=== PATIENT | male | born 1960 | race Caucasian/White ===

== ENCOUNTER 2016-06-18 12:30 | Emergency (ER) | payer OTHER ==
[~2016-06-18 12:30] MED LIST: ALPR1TAB3 PO; BACITAB3 PO; CIPR500T89 PO; FOLI1TAB2 PO; HYDR-3713 PO; OXAZ30CA2 PO; PERCOCET PO; PRIL40CA PO; SUCR1SS PO; THIA100TA PO; VITMTA PO
[2016-06-18 12:56] LABS: BASO % 0.4 % (0.0-1.0); EOS % 0.4 % (0.0-3.0); LARGE UNSTAINED CELL # 0.2 K/mm3 (0.0-0.4); LARGE UNSTAINED CELL % 2.4 % (0.0-4.0); LYMPH # 1.6 K/mm3 (1.5-4.5); LYMPH % 19.5 % (24.0-44.0); MEAN CORPUSCULAR HEMOGLOBIN 34.2 pg (27.0-33.0); MEAN CORPUSCULAR HGB CONC 33.6 g/dl (32.0-36.5); MEAN CORPUSCULAR VOLUME 101.9 fl (80.0-96.0); MONO # 0.5 K/mm3 (0.0-0.8); MONO % 6.5 % (0.0-5.0); NEUTROPHILS # 5.9 K/mm3 (1.8-7.7); NEUTROPHILS % 70.8 % (36.0-66.0); PLATELET COUNT, AUTOMATED 459 k/mm3 (150-450); RED CELL DISTRIBUTION WIDTH 12.2 % (11.5-14.5); WHITE BLOOD COUNT 8.3 K/mm3 (4.0-10.0)
[2016-06-18 13:00] LABS: INR 1.03
--- NOTE | 2016-06-18 13:03 | ECGEPIP ---
Stationary ECG Study [facility] - ED Test Date: 2016-06-18 Pat Name: DIONY CALLAHAN Department: Room: - Gender: M Lead Qa Analyst: : 1960 Requested By: Zahra Perez Order Number: [id number] Reading MD: Ajay Zhang Measurements Intervals [place] Rate: 62 P: -1 MT: 166 QRS: 23 QRSD: 105 T: 43 QT: 418 QTc: 426 Interpretive Statements SINUS RHYTHM Electronically Signed On 06-18-2016 13:03:55 EST by Ajay Zhang
[2016-06-18 13:22] LABS: ALBUMIN 3.9 GM/DL (3.2-5.2); ALBUMIN/GLOBULIN RATIO 1.18 (1.00-1.93); ALKALINE PHOSPHATASE 72 U/L (45-117); ALT/SGPT 24 U/L (12-78); AMYLASE 49 U/L (25-115); ANION GAP 11 MEQ/L (8-16); AST/SGOT 20 U/L (15-37); BILIRUBIN,DIRECT 0.1 MG/DL (0.0-0.2); BILIRUBIN,TOTAL 0.4 MG/DL (0.2-1.0); BLOOD UREA NITROGEN 15 MG/DL (7-18); CALCIUM LEVEL 9.1 MG/DL (8.5-10.1); CARBON DIOXIDE LEVEL 24 MEQ/L (21-32); CHLORIDE LEVEL 103 MEQ/L (98-107); CREATININE FOR GFR 1.66 MG/DL (0.70-1.30); GLOMERULAR FILTRATION RATE 45.7 (>56); GLUCOSE, FASTING 139 MG/DL (70-105); POTASSIUM SERUM 4.6 MEQ/L (3.5-5.1); SODIUM LEVEL 138 MEQ/L (136-145); TOTAL PROTEIN 7.2 GM/DL (6.4-8.2)
--- NOTE | 2016-06-18 15:20 | EDDOCDS ---
Nurse's Notes [facility] Name: Diony Hoffman Age: 55 yrs Sex: Male : 1960 Arrival Date: 06/18/2016 Time: 12:30 Bed 1 Private MD: Jaison Jeffers M. Diagnosis: Hypotension Presentation: 06/18 12:32 Presenting complaint: Patient states: became light headed and dizzy while at store and pml felt as if he needed to sit down. denies LOC. EMS reports pt was minimally responsive to voice commands and reported some fine tremors. states pt was d/c'ed from [facility] yesterday. found pt diaphoretic and pale with bp 60/p. Adult Sepsis Screening: The patient does not have new or worsening altered mentation. Patient's respiratory rate is less than 22. Systolic blood pressure is less than or equal to 100 (1 point). Patient has a qSOFA score of 1- Negative Sepsis Screen. Suicide/Homicide risk assessment- the patient denies having any suicidal and/or homicidal ideations and does not present with any other emotional, behavioral or mental health complaints. Status: Patient is not a legal service specialist or dependent. Transition of care: patient was not received from another setting of care. 12:32 Acuity: MYAH Level 3 pml 12:32 Method Of Arrival: Ambulance pml Triage Assessment: 12:36 General: Appears in no apparent distress, comfortable, Behavior is appropriate for age, pml cooperative. Pain: Location: anterior aspect of right shoulder Pain currently is 8 out of 10 on a pain scale. HIV screening NA for this visit Offered previously. The patient is triaged at the bedside. See Assessment in Nurses Notes section of ED record. Neurological: Level of Consciousness is awake, alert, Oriented to person, place, time. Cardiovascular: Capillary refill < 3 seconds Rhythm is sinus rhythm No ectopy. Respiratory: Airway is patent Respiratory effort is even, unlabored, Respiratory pattern is regular, symmetrical. GI: Abdomen is non- distended. Derm: Skin is pale. Historical: - Allergies: no known allergies; - Home Meds: 1. benazepril 40 mg oral tab 1 tab once daily 2. naltrexone 50 mg oral tab 1 tab once daily 3. trazodone 50 mg Oral tab nightly - PMHx: Alcoholism; Anxiety; Chronic Low Back Pain; herniated lumbar discs; Hypertension; - PSHx: Vasectomy; ORIF Left Ankle; ORIF Right Ankle; Rotator Cuff Repair- Right; - Social history: Smoking status: Patient states former smoker of tobacco. No barriers to communication noted, The patient speaks fluent Amharic, Speaks appropriately for age. - Family history: Not pertinent. - : The pt / caregiver states he / she is not on anticoagulants. Home medication list is obtained from the patient. - Exposure Risk Screening:: None identified. Screenin:40 Screening information is obtained from the patient. Fall risk: No risks identified. pml Assistance ADL's: requires no assistance with activities of daily living. Abuse/DV Screen: The patient / caregiver reports he/she is: not in a situation that causes fear, pain or injury. Nutritional screening: No deficits noted. Advance Directives: Currently, there is no health care proxy. home support is adequate. Assessment: 12:40 General: see triage note. pml 14:08 General: Appears in no apparent distress, comfortable, Behavior is appropriate for age, pml cooperative. Pain: Denies pain. Neurological: Level of Consciousness is awake, alert, Oriented to person, place, time. Cardiovascular: Capillary refill < 3 seconds Rhythm is sinus rhythm No ectopy. Respiratory: Airway is patent Respiratory effort is even, unlabored. Derm: Skin is pink, warm & dry. 14:17 General: Reports Pt refused Chest X-ray. Dr. Perez made aware. jc4 15:00 General: pt reports he feels better and would like to go home. MD Naqvi reviewed AMA pml risks and benefits and pt acknowledged, AMA form signed . 15:16 General: Appears in no apparent distress, Behavior is appropriate for age, cooperative. pml Pain: Denies pain. Neurological: Level of Consciousness is awake, alert, Oriented to person, place, time. Cardiovascular: Capillary refill < 3 seconds Rhythm is sinus rhythm No ectopy. Respiratory: Airway is patent Respiratory effort is even, unlabored. Derm: Skin is pink, warm & dry. Vital Signs: 12:38 BP 87 / 55; Pulse 75; Resp 20; Temp 97.8(O); Pulse Ox 97% on R/A; Weight 94.48 kg (M); ls3 Pain 8/10; 12:42 BP 85 / 53 (auto/); pml 12:42 Pulse 71 MON; Pulse Ox 97% ; pml 12:45 BP 81 / 50 (auto/); pml 12:46 Pulse 66 MON; Pulse Ox 96% ; pml 12:51 BP 86 / 55 (auto/); pml 12:52 Pulse 63 MON; Pulse Ox 99% ; pml 13:01 BP 87 / 55 (auto/); pml 13:02 Pulse 69 MON; Pulse Ox 99% ; pml 13:11 BP 91 / 54 (auto/); pml 13:12 Pulse 66 MON; Pulse Ox 96% ; pml 13:21 BP 97 / 51 (auto/); pml 13:22 Pulse 68 MON; Pulse Ox 89% ; pml 13:30 Pulse 68 MON; Pulse Ox 97% ; pml 13:30 BP 90 / 50 (auto/); pml 13:40 Pulse 65 MON; Pulse Ox 97% ; pml 13:40 BP 90 / 55 (auto/); pml 13:51 BP 91 / 52 (auto/); pml 13:52 Pulse 62 MON; Pulse Ox 97% ; pml 14:01 BP 92 / 52 (auto/); pml 14:02 Pulse 64 MON; Pulse Ox 96% ; pml 14:11 Pulse 65 MON; Pulse Ox 97% ; pml 14:11 BP 108 / 67 (auto/); pml 14:21 BP 112 / 65 (auto/); pml 14:21 Pulse 64 MON; Pulse Ox 98% ; pml 14:29 Pulse 67 MON; Pulse Ox 93% ; pml 14:30 BP 123 / 71 (auto/); pml 14:39 Pulse 65 MON; Pulse Ox 97% ; pml 14:40 BP 111 / 73 (auto/); pml 14:51 BP 115 / 72 (auto/); pml 14:51 Pulse 68 MON; Pulse Ox 97% ; pml 15:01 BP 126 / 74 (auto/); pml 15:01 Pulse 69 MON; Pulse Ox 96% ; pml 15:08 Pulse 67 MON; Pulse Ox 94% ; pml 15:08 BP 128 / 73 (auto/); pml 15:18 BP 128 / 73; Pulse 67; Resp 18; Temp 97.3; Pulse Ox 92% on R/A; Pain 0/10; pml Vitals: 12:36 Log In Time N/A - ambulance arrival. pml ED Course: 12:31 Patient visited by Maite Wang, Superintendent Commissary. lbd 12:31 Patient moved to Waiting lbd 12:32 Jaison Jeffers is Private Physician. lbd 12:32 Neisha Duarnt,RN is Primary Nurse. lbd 12:32 Patient moved to 1 lbd 12:33 Triage Initiated pml 12:34 Zahra Perez MD is Attending Physician. sd1 12:37 Patient visited by Zahra Perez MD. sd1 12:37 Patient visited by Neisha Durant,JACINTA. pml 12:39 Patient visited by Manasa Bender PCA. ls3 12:40 The patient / caregiver is instructed regarding the plan of care and ED course. Patient pml has correct armband on for positive identification. Placed in gown. Bed in low position. Call light in reach. Side rails up X2. Seizure precautions initiated. equipment monitor phototypesetting on. Pulse ox on. NIBP on. 12:40 Inserted peripheral IV: 18gauge IV in left antecubital area and blood collected. pml Patient tolerated the procedure well. by JACINTA Baumann. 12:41 Patient visited by Neisha Durant RN. pml 12:55 EKG done. (by ED staff). Reviewed by Zahra Perez MD. ls3 13:43 EKG-ADULT Returned. EDMS 13:59 Patient visited by Leonor Morrow PCA. jlf 14:09 Patient visited by Neisha Durant RN. pml 14:33 Jaison Jeffers is Referral Physician. sd1 14:59 [facility] Payment Agreement was scanned into [employer] and attached to record. mm15 15:18 Discontinued lock intact, bleeding controlled, pressure dressing applied, No pml redness/swelling at site. No procedures done that require assistance. Administered Medications: 12:47 Drug: NS 0.9% 1000 ml [sodium chloride 0.9 % injection solution] Route: IV; Rate: pml bolus; Site: left antecubital; 14:01 Follow up: IV Status: Completed infusion; IV Intake: 1000ml pml Intake: 14:01 IV: 1000.00ml; Total: 1000.00ml. pml Order Results: Lab Order: Amylase; SPEC'M 06/18/16 12:38 Test: AMYLASE; Value: 49; Range: 25-115; Units: U/L; Status: F Lab Order: Basic Metabolic Profile; SPEC'M 06/18/16 12:38 Test: GLUCOSE, FASTING; Value: 139; Range: 70-105; Abnormal: Above high normal; Units: MG/DL; Status: F Test: BLOOD UREA NITROGEN; Value: 15; Range: 7-18; Units: MG/DL; Status: F Test: CREATININE FOR GFR; Value: 1.66; Range: 0.70-1.30; Abnormal: Above high normal; Units: MG/DL; Status: F Test: GLOMERULAR FILTRATION RATE; Value: 45.7; Range: >56; Abnormal: Below low normal; Status: F Test: SODIUM LEVEL; Value: 138; Range: 136-145; Units: MEQ/L; Status: F Test: POTASSIUM SERUM; Value: 4.6; Range: 3.5-5.1; Units: MEQ/L; Status: F Test: CHLORIDE LEVEL; Value: 103; Range: 98-107; Units: MEQ/L; Status: F Test: CARBON DIOXIDE LEVEL; Value: 24; Range: 21-32; Units: MEQ/L; Status: F Test: ANION GAP; Value: 11; Range: 8-16; Units: MEQ/L; Status: F Test: CALCIUM LEVEL; Value: 9.1; Range: 8.5-10.1; Units: MG/DL; Status: F Test Note: ; Units are mL/min/1.73 m2 Chronic Kidney Disease Staging per NKF: Stage I & II GFR >=60 Normal to Mildly Decreased Stage III GFR 30-59 Moderately Decreased Stage IV GFR 15-29 Severely Decreased Stage V GFR <15 Very Little GFR Left ESRD GFR <15 on PLUSH BRUSHER Lab Order: CBC with Diff; SPEC'M 06/18/16 12:38 Test: WHITE BLOOD COUNT; Value: 8.3; Range: 4.0-10.0; Units: K/mm3; Status: F Test: RED BLOOD COUNT; Value: 4.32; Range: 4.30-6.10; Units: M/mm3; Status: F Test: HEMOGLOBIN; Value: 14.8; Range: 14.0-18.0; Units: g/dl; Status: F Test: HEMATOCRIT; Value: 44.1; Range: 42.0-52.0; Units: %; Status: F Test: MEAN CORPUSCULAR VOLUME; Value: 101.9; Range: 80.0-96.0; Abnormal: Above high normal; Units: fl; Status: F Test: MEAN CORPUSCULAR HEMOGLOBIN; Value: 34.2; Range: 27.0-33.0; Abnormal: Above high normal; Units: pg; Status: F Test: MEAN CORPUSCULAR HGB CONC; Value: 33.6; Range: 32.0-36.5; Units: g/dl; Status: F Test: RED CELL DISTRIBUTION WIDTH; Value: 12.2; Range: 11.5-14.5; Units: %; Status: F Test: PLATELET COUNT, AUTOMATED; Value: 459; Range: 150-450; Abnormal: Above high normal; Units: k/mm3; Status: F Test: NEUTROPHILS %; Value: 70.8; Range: 36.0-66.0; Abnormal: Above high normal; Units: %; Status: F Test: LYMPH %; Value: 19.5; Range: 24.0-44.0; Abnormal: Below low normal; Units: %; Status: F Test: MONO %; Value: 6.5; Range: 0.0-5.0; Abnormal: Above high normal; Units: %; Status: F Test: EOS %; Value: 0.4; Range: 0.0-3.0; Units: %; Status: F Test: BASO %; Value: 0.4; Range: 0.0-1.0; Units: %; Status: F Test: LARGE UNSTAINED CELL %; Value: 2.4; Range: 0.0-4.0; Units: %; Status: F Test: NEUTROPHILS #; Value: 5.9; Range: 1.8-7.7; Units: K/mm3; Status: F Test: LYMPH #; Value: 1.6; Range: 1.5-4.5; Units: K/mm3; Status: F Test: MONO #; Value: 0.5; Range: 0.0-0.8; Units: K/mm3; Status: F Test: EOS #; Value: 0.0; Range: 0.0-0.50; Units: K/mm3; Status: F Test: BASO #; Value: 0.0; Range: 0.0-0.2; Units: K/mm3; Status: F Test: LARGE UNSTAINED CELL #; Value: 0.2; Range: 0.0-0.4; Units: K/mm3; Status: F Lab Order: Cardiac Injury Profile; [facility] 06/18/16 12:38 Test: CPK CREATINE PHOSPHOKINASE; Value: 219; Range: 39-308; Units: U/L; Status: F Test: CK-MB VALUE MASS; Value: 1.8; Range: 0.0-3.6; Units: NG/ML; Status: F Test: MB/CK RELATIVE INDEX; Value: 0.82; Range: < OR =4; Status: F Test Note: ; DIAGNOSIS CRITERIA MMB ng/ml Relative Index (RI) NON-AMI < or = 5 N/A JOLLY ZONE > 5 < or = 4 AMI > 5 > 4 Lab Order: Lipase; [facility] 06/18/16 12:38 Test: LIPASE; Value: 395; Range: 73-393; Abnormal: Above high normal; Units: U/L; Status: F Lab Order: Liver Profile; [facility] 06/18/16 12:38 Test: AST/SGOT; Value: 20; Range: 15-37; Units: U/L; Status: F Test: ALT/SGPT; Value: 24; Range: 12-78; Units: U/L; Status: F Test: ALKALINE PHOSPHATASE; Value: 72; Range: 45-117; Units: U/L; Status: F Test: BILIRUBIN,TOTAL; Value: 0.4; Range: 0.2-1.0; Units: MG/DL; Status: F Test: BILIRUBIN,DIRECT; Value: 0.1; Range: 0.0-0.2; Units: MG/DL; Status: F Test: TOTAL PROTEIN; Value: 7.2; Range: 6.4-8.2; Units: GM/DL; Status: F Test: ALBUMIN; Value: 3.9; Range: 3.2-5.2; Units: GM/DL; Status: F Test: ALBUMIN/GLOBULIN RATIO; Value: 1.18; Range: 1.00-1.93; Status: F Lab Order: Prothrombin Time Profile\E\INR; [facility] 06/18/16 12:38 Test: PROTHROMBIN TIME; Value: 13.6; Range: 12.3-14.5; Units: SECONDS; Status: F Test: INR; Value: 1.03; Status: F Test Note: ; THERAPUTIC HUMAN INR VALUES INDICATIONS NORMAL RANGES PROPHYLAXIS/TREATMENT OF: VENOUS THROMBOSIS 2.0-3.0 PULMONARY EMBOLISM 2.0-3.0 PREVENTION OF SYSTEMIC EMBOLISM FROM: TISSUE HEART VALVES 2.0-3.0 ACUTE MYOCARDIAL INFARCTION 2.0-3.0 VALVULAR HEART DISEASE 2.0-3.0 ATRIAL FIBRILLATION 2.0-3.0 MECHANICAL VALVES(HIGH RISK) 2.5-3.5 RECURRENT MYOCARDIAL INFARCTION 2.5-3.5 Lab Order: Troponin; SPEC'M 06/18/16 12:38 Test: TROPONIN I; Value: < 0.02; Range: < 0.10; Units: NG/ML; Status: F Test Note: ; Troponin I Reference Interval for [employer] LOCI: 99th Percentile= 0.00-0.045 ng/ml Risk Stratification: <= 0.10 ng/ml Decreased Risk for Adverse Clinical Events. 0.10-1.50 ng/ml Increased Risk for Adverse Clinical Events. Evaluation of additional criterion and/or repeat testing in 2-6 hours is suggested to rule out myocardial damage. >= 1.50 ng/ml Indicative of Myocardial Injury. 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 sd1 15:18 Discharge Assessment: Patient awake, alert and oriented x 3. No cognitive and/or pml functional deficits noted. Patient verbalized understanding of disposition instructions. patient administered narcotics - no. The following High Risk Discharge criteria are identified: None. Discharged to home ambulatory, The patient is leaving AMA: AMA form signed, Notification of AMA status is made to the charge nurse, the health care social worker, the ED attending physician. Condition: good Condition: stable. Discharge instructions given to patient, Instructed on discharge instructions, follow up and referral plans. Demonstrated understanding of instructions, Pt was receptive of discharge instructions/ teaching. No special radiology studies were completed. Property sent home with patient. 15:19 Patient left the ED. pml Signatures: Dispatcher [employer] EDMS Zahra Perez MD MD sd1 Maite Wang, Superintendent Commissary Unit lbd Jenn Burrell RN RN jc4 Neisha Durant,JACINTA RN pml Vita Knox mm15 Leonor Morrow, GRINDER HAND GRINDER HAND dannyf Manasa Bender, GRINDER HAND GRINDER HAND ls3 KIM
--- NOTE | 2016-06-18 15:20 | EDDOCDS ---
Physician Documentation [facility] Name: Jorge Hoffman Age: 55 yrs Sex: Male : 1960 Arrival Date: 06/18/2016 Time: 12:30 Bed 1 Private MD: Jaison Jeffers M. Disposition: 06/18/16 14:33 Patient has left against medical advice. Impression: Hypotension. - Patients states they are going to Home/Self Care. - Condition is Fair. - Discharge Instructions: Hypotension, Hypotension, [id number]. Medication Reconciliation, Local Pharmacy Hours form. Follow up: Jaison Jeffers; When: Tomorrow. - Problem is new. - Symptoms have improved. Historical: - Allergies: no known allergies; - Home Meds: 1. benazepril 40 mg oral tab 1 tab once daily 2. naltrexone 50 mg oral tab 1 tab once daily 3. trazodone 50 mg Oral tab nightly - PMHx: Alcoholism; Anxiety; Chronic Low Back Pain; herniated lumbar discs; Hypertension; - PSHx: Vasectomy; ORIF Left Ankle; ORIF Right Ankle; Rotator Cuff Repair- Right; - Social history: Smoking status: Patient states former smoker of tobacco. No barriers to communication noted, The patient speaks fluent Romansh, Speaks appropriately for age. - Family history: Not pertinent. - : The pt / caregiver states he / she is not on anticoagulants. Home medication list is obtained from the patient. - Exposure Risk Screening:: None identified. Vital Signs: 06/18 12:38 BP 87 / 55; Pulse 75; Resp 20; Temp 97.8(O); Pulse Ox 97% on R/A; Weight 94.48 kg / ls3 208.29 lbs (M); Pain 8/10; 12:42 BP 85 / 53 (auto/); pml 12:42 Pulse 71 MON; Pulse Ox 97% ; pml 12:45 BP 81 / 50 (auto/); pml 12:46 Pulse 66 MON; Pulse Ox 96% ; pml 12:51 BP 86 / 55 (auto/); pml 12:52 Pulse 63 MON; Pulse Ox 99% ; pml 13:01 BP 87 / 55 (auto/); pml 13:02 Pulse 69 MON; Pulse Ox 99% ; pml 13:11 BP 91 / 54 (auto/); pml 13:12 Pulse 66 MON; Pulse Ox 96% ; pml 13:21 BP 97 / 51 (auto/); pml 13:22 Pulse 68 MON; Pulse Ox 89% ; pml 13:30 Pulse 68 MON; Pulse Ox 97% ; pml 13:30 BP 90 / 50 (auto/); pml 13:40 Pulse 65 MON; Pulse Ox 97% ; pml 13:40 BP 90 / 55 (auto/); pml 13:51 BP 91 / 52 (auto/); pml 13:52 Pulse 62 MON; Pulse Ox 97% ; pml 14:01 BP 92 / 52 (auto/); pml 14:02 Pulse 64 MON; Pulse Ox 96% ; pml 14:11 Pulse 65 MON; Pulse Ox 97% ; pml 14:11 BP 108 / 67 (auto/); pml 14:21 BP 112 / 65 (auto/); pml 14:21 Pulse 64 MON; Pulse Ox 98% ; pml 14:29 Pulse 67 MON; Pulse Ox 93% ; pml 14:30 BP 123 / 71 (auto/); pml 14:39 Pulse 65 MON; Pulse Ox 97% ; pml 14:40 BP 111 / 73 (auto/); pml 14:51 BP 115 / 72 (auto/); pml 14:51 Pulse 68 MON; Pulse Ox 97% ; pml 15:01 BP 126 / 74 (auto/); pml 15:01 Pulse 69 MON; Pulse Ox 96% ; pml 15:08 Pulse 67 MON; Pulse Ox 94% ; pml 15:08 BP 128 / 73 (auto/); pml 15:18 BP 128 / 73; Pulse 67; Resp 18; Temp 97.3; Pulse Ox 92% on R/A; Pain 0/10; pml MDM: 12:46 NS 0.9% 1000 ml IV at bolus once ordered. sd1 12:46 IV Saline Lock ordered. sd1 12:47 Business Services Sales Agent/Pulse Ox/q 30 min VS ordered. sd1 12:47 Amylase Ordered. EDMS 12:47 Basic Metabolic Profile Ordered. EDMS 12:47 CBC with Diff Ordered. EDMS 12:47 Cardiac Injury Profile Ordered. EDMS 12:47 Lipase Ordered. EDMS 12:47 Liver Profile Ordered. EDMS 12:47 Prothrombin Time Profile\E\INR Ordered. EDMS 12:47 Troponin Ordered. EDMS 12:48 ECG WITH READING ER PHYS+CARDIAG ordered. EDMS 12:52 Financial registration complete. mm15 13:19 CBC with Diff Reviewed. sd1 13:19 Prothrombin Time Profile\E\INR Reviewed. sd1 13:24 Basic Metabolic Profile Reviewed. sd1 13:24 Lipase Reviewed. sd1 13:24 Amylase Reviewed. sd1 13:24 Cardiac Injury Profile Reviewed. sd1 13:24 Liver Profile Reviewed. sd1 13:24 Troponin Reviewed. sd1 13:25 Lactic Acid (Jolly tube on ice) Ordered. EDMS 13:25 Urine Toxicology Ordered. EDMS 13:55 Lactic Acid (Jolly tube on ice) Reviewed. sd1 13:55 EKG-ADULT Reviewed. sd1 13:56 -Blood Culture (Adults Only), peripheral from different site, or from device/port/PICC sd1 etc. if present ordered. 13:57 Urine Culture Ordered. EDMS 13:58 -Blood Culture Ordered. EDMS 13:58 Urinalysis Ordered. EDMS 14:10 -Blood Culture (Adults Only), peripheral from different site, or from device/port/PICC lbd etc. if present complete. 14:15 BLOOD CULTURES Ordered. EDMS 14:59 [facility] Payment Agreement was scanned into [employer] and attached to record. mm15 Administered Medications: 12:47 Drug: NS 0.9% 1000 ml [sodium chloride 0.9 % injection solution] Route: IV; Rate: pml bolus; Site: left antecubital; 14:01 Follow up: IV Status: Completed infusion; IV Intake: 1000ml pml Signatures: Dispatcher [employer] EDNE Zahra Perez MD MD sd1 Maite Wang, Director Of Operations Home Health Unit lbd Neisha Durant RN RN pml Vita Knox mm15 The chart was reviewed and I authenticate all verbal orders and agree with the evaluation and treatment provided.Corrections: (The following items were deleted from the chart) 14:19 13:57 Chest, 1 view+XR ordered. EDMS EDMS Attachments: 14:59 [facility] [place] Payment Agreement mm15 MTDD
--- NOTE | 2016-06-20 16:20 | EDDOCDS ---
Physician Documentation [facility] Name: Jorge Hoffman Age: 55 yrs Sex: Male : 1960 Arrival Date: 06/18/2016 Time: 12:30 Bed 1 Private MD: Jaison Jeffers M. Disposition: 06/18/16 14:33 Patient has left against medical advice. Impression: Hypotension. - Patients states they are going to Home/Self Care. - Condition is Fair. - Discharge Instructions: Hypotension, Hypotension, [id number]. Medication Reconciliation, Local Pharmacy Hours form. Follow up: Jaison Jeffers; When: Tomorrow. - Problem is new. - Symptoms have improved. Historical: - Allergies: no known allergies; - Home Meds: 1. benazepril 40 mg oral tab 1 tab once daily 2. naltrexone 50 mg oral tab 1 tab once daily 3. trazodone 50 mg Oral tab nightly - PMHx: Alcoholism; Anxiety; Chronic Low Back Pain; herniated lumbar discs; Hypertension; - PSHx: Vasectomy; ORIF Left Ankle; ORIF Right Ankle; Rotator Cuff Repair- Right; - Social history: Smoking status: Patient states former smoker of tobacco. No barriers to communication noted, The patient speaks fluent Nauruan, Speaks appropriately for age. - Family history: Not pertinent. - : The pt / caregiver states he / she is not on anticoagulants. Home medication list is obtained from the patient. - Exposure Risk Screening:: None identified. Vital Signs: 06/18 12:38 BP 87 / 55; Pulse 75; Resp 20; Temp 97.8(O); Pulse Ox 97% on R/A; Weight 94.48 kg / ls3 208.29 lbs (M); Pain 8/10; 12:42 BP 85 / 53 (auto/); pml 12:42 Pulse 71 MON; Pulse Ox 97% ; pml 12:45 BP 81 / 50 (auto/); pml 12:46 Pulse 66 MON; Pulse Ox 96% ; pml 12:51 BP 86 / 55 (auto/); pml 12:52 Pulse 63 MON; Pulse Ox 99% ; pml 13:01 BP 87 / 55 (auto/); pml 13:02 Pulse 69 MON; Pulse Ox 99% ; pml 13:11 BP 91 / 54 (auto/); pml 13:12 Pulse 66 MON; Pulse Ox 96% ; pml 13:21 BP 97 / 51 (auto/); pml 13:22 Pulse 68 MON; Pulse Ox 89% ; pml 13:30 Pulse 68 MON; Pulse Ox 97% ; pml 13:30 BP 90 / 50 (auto/); pml 13:40 Pulse 65 MON; Pulse Ox 97% ; pml 13:40 BP 90 / 55 (auto/); pml 13:51 BP 91 / 52 (auto/); pml 13:52 Pulse 62 MON; Pulse Ox 97% ; pml 14:01 BP 92 / 52 (auto/); pml 14:02 Pulse 64 MON; Pulse Ox 96% ; pml 14:11 Pulse 65 MON; Pulse Ox 97% ; pml 14:11 BP 108 / 67 (auto/); pml 14:21 BP 112 / 65 (auto/); pml 14:21 Pulse 64 MON; Pulse Ox 98% ; pml 14:29 Pulse 67 MON; Pulse Ox 93% ; pml 14:30 BP 123 / 71 (auto/); pml 14:39 Pulse 65 MON; Pulse Ox 97% ; pml 14:40 BP 111 / 73 (auto/); pml 14:51 BP 115 / 72 (auto/); pml 14:51 Pulse 68 MON; Pulse Ox 97% ; pml 15:01 BP 126 / 74 (auto/); pml 15:01 Pulse 69 MON; Pulse Ox 96% ; pml 15:08 Pulse 67 MON; Pulse Ox 94% ; pml 15:08 BP 128 / 73 (auto/); pml 15:18 BP 128 / 73; Pulse 67; Resp 18; Temp 97.3; Pulse Ox 92% on R/A; Pain 0/10; pml MDM: 12:46 NS 0.9% 1000 ml IV at bolus once ordered. sd1 12:46 IV Saline Lock ordered. sd1 12:47 Meat Pumper/Pulse Ox/q 30 min VS ordered. sd1 12:47 Amylase Ordered. EDMS 12:47 Basic Metabolic Profile Ordered. EDMS 12:47 CBC with Diff Ordered. EDMS 12:47 Cardiac Injury Profile Ordered. EDMS 12:47 Lipase Ordered. EDMS 12:47 Liver Profile Ordered. EDMS 12:47 Prothrombin Time Profile\E\INR Ordered. EDMS 12:47 Troponin Ordered. EDMS 12:48 ECG WITH READING ER PHYS+CARDIAG ordered. EDMS 12:52 Financial registration complete. mm15 13:19 CBC with Diff Reviewed. sd1 13:19 Prothrombin Time Profile\E\INR Reviewed. sd1 13:24 Basic Metabolic Profile Reviewed. sd1 13:24 Lipase Reviewed. sd1 13:24 Amylase Reviewed. sd1 13:24 Cardiac Injury Profile Reviewed. sd1 13:24 Liver Profile Reviewed. sd1 13:24 Troponin Reviewed. sd1 13:25 Lactic Acid (Jolly tube on ice) Ordered. EDMS 13:25 Urine Toxicology Ordered. EDMS 13:55 Lactic Acid (Jolly tube on ice) Reviewed. sd1 13:55 EKG-ADULT Reviewed. sd1 13:56 -Blood Culture (Adults Only), peripheral from different site, or from device/port/PICC sd1 etc. if present ordered. 13:57 Urine Culture Ordered. EDMS 13:58 -Blood Culture Ordered. EDMS 13:58 Urinalysis Ordered. EDMS 14:10 -Blood Culture (Adults Only), peripheral from different site, or from device/port/PICC lbd etc. if present complete. 14:15 BLOOD CULTURES Ordered. EDMS 14:59 [facility] Payment Agreement was scanned into [email or web address] and attached to record. mm15 15:22 URINALYSIS Ordered. EDUT 06/19 08:47 T-Sheet-- Draft Copy was scanned into [email or web address] and attached to record. [facility] 08:47 ECG/EKG was scanned into [email or web address] and attached to record. se 11:42 Refusal of Services was scanned into [email or web address] and attached to record. 11:43 T-Sheet-- Draft Copy was scanned into [email or web address] and attached to record. gb Administered Medications: 06/18 12:47 Drug: NS 0.9% 1000 ml [sodium chloride 0.9 % injection solution] Route: IV; Rate: pml bolus; Site: left antecubital; 14:01 Follow up: IV Status: Completed infusion; IV Intake: 1000ml pml Signatures: Dispatcher [employer] EDMS Zahra Perez MD MD sd1 Maite Wang, Tile Picker Unit lbd Laurie Tucker, Reg Reg gb Neisha Durant RN RN pml Vita Knox mm15 Zahra Arce [facility] The chart was reviewed and I authenticate all verbal orders and agree with the evaluation and treatment provided.Corrections: (The following items were deleted from the chart) 14:19 13:57 Chest, 1 view+XR ordered. EDMS EDMS Attachments: 14:59 [facility] Payment Agreement mm15 08:47 ECG/EKG [facility] 11:43 T-Sheet-- Draft Copy gb Chart Complete MTDD
--- NOTE | 2016-06-20 16:20 | EDDOCDS ---
Physician Documentation [facility] Name: Jorge Hoffman Age: 55 yrs Sex: Male : 1960 Arrival Date: 06/18/2016 Time: 12:30 Bed 1 Private MD: Jaison Jeffers M. Disposition: 06/18/16 14:33 Patient has left against medical advice. Impression: Hypotension. - Patients states they are going to Home/Self Care. - Condition is Fair. - Discharge Instructions: Hypotension, Hypotension, [id number]. Medication Reconciliation, Local Pharmacy Hours form. Follow up: Jaison Jeffers; When: Tomorrow. - Problem is new. - Symptoms have improved. Historical: - Allergies: no known allergies; - Home Meds: 1. benazepril 40 mg oral tab 1 tab once daily 2. naltrexone 50 mg oral tab 1 tab once daily 3. trazodone 50 mg Oral tab nightly - PMHx: Alcoholism; Anxiety; Chronic Low Back Pain; herniated lumbar discs; Hypertension; - PSHx: Vasectomy; ORIF Left Ankle; ORIF Right Ankle; Rotator Cuff Repair- Right; - Social history: Smoking status: Patient states former smoker of tobacco. No barriers to communication noted, The patient speaks fluent South Korean, Speaks appropriately for age. - Family history: Not pertinent. - : The pt / caregiver states he / she is not on anticoagulants. Home medication list is obtained from the patient. - Exposure Risk Screening:: None identified. Vital Signs: 06/18 12:38 BP 87 / 55; Pulse 75; Resp 20; Temp 97.8(O); Pulse Ox 97% on R/A; Weight 94.48 kg / ls3 208.29 lbs (M); Pain 8/10; 12:42 BP 85 / 53 (auto/); pml 12:42 Pulse 71 MON; Pulse Ox 97% ; pml 12:45 BP 81 / 50 (auto/); pml 12:46 Pulse 66 MON; Pulse Ox 96% ; pml 12:51 BP 86 / 55 (auto/); pml 12:52 Pulse 63 MON; Pulse Ox 99% ; pml 13:01 BP 87 / 55 (auto/); pml 13:02 Pulse 69 MON; Pulse Ox 99% ; pml 13:11 BP 91 / 54 (auto/); pml 13:12 Pulse 66 MON; Pulse Ox 96% ; pml 13:21 BP 97 / 51 (auto/); pml 13:22 Pulse 68 MON; Pulse Ox 89% ; pml 13:30 Pulse 68 MON; Pulse Ox 97% ; pml 13:30 BP 90 / 50 (auto/); pml 13:40 Pulse 65 MON; Pulse Ox 97% ; pml 13:40 BP 90 / 55 (auto/); pml 13:51 BP 91 / 52 (auto/); pml 13:52 Pulse 62 MON; Pulse Ox 97% ; pml 14:01 BP 92 / 52 (auto/); pml 14:02 Pulse 64 MON; Pulse Ox 96% ; pml 14:11 Pulse 65 MON; Pulse Ox 97% ; pml 14:11 BP 108 / 67 (auto/); pml 14:21 BP 112 / 65 (auto/); pml 14:21 Pulse 64 MON; Pulse Ox 98% ; pml 14:29 Pulse 67 MON; Pulse Ox 93% ; pml 14:30 BP 123 / 71 (auto/); pml 14:39 Pulse 65 MON; Pulse Ox 97% ; pml 14:40 BP 111 / 73 (auto/); pml 14:51 BP 115 / 72 (auto/); pml 14:51 Pulse 68 MON; Pulse Ox 97% ; pml 15:01 BP 126 / 74 (auto/); pml 15:01 Pulse 69 MON; Pulse Ox 96% ; pml 15:08 Pulse 67 MON; Pulse Ox 94% ; pml 15:08 BP 128 / 73 (auto/); pml 15:18 BP 128 / 73; Pulse 67; Resp 18; Temp 97.3; Pulse Ox 92% on R/A; Pain 0/10; pml MDM: 12:46 NS 0.9% 1000 ml IV at bolus once ordered. sd1 12:46 IV Saline Lock ordered. sd1 12:47 Music Assistant/Pulse Ox/q 30 min VS ordered. sd1 12:47 Amylase Ordered. EDMS 12:47 Basic Metabolic Profile Ordered. EDMS 12:47 CBC with Diff Ordered. EDMS 12:47 Cardiac Injury Profile Ordered. EDMS 12:47 Lipase Ordered. EDMS 12:47 Liver Profile Ordered. EDMS 12:47 Prothrombin Time Profile\E\INR Ordered. EDMS 12:47 Troponin Ordered. EDMS 12:48 ECG WITH READING ER PHYS+CARDIAG ordered. EDMS 12:52 Financial registration complete. mm15 13:19 CBC with Diff Reviewed. sd1 13:19 Prothrombin Time Profile\E\INR Reviewed. sd1 13:24 Basic Metabolic Profile Reviewed. sd1 13:24 Lipase Reviewed. sd1 13:24 Amylase Reviewed. sd1 13:24 Cardiac Injury Profile Reviewed. sd1 13:24 Liver Profile Reviewed. sd1 13:24 Troponin Reviewed. sd1 13:25 Lactic Acid (Jolly tube on ice) Ordered. EDMS 13:25 Urine Toxicology Ordered. EDMS 13:55 Lactic Acid (Jolly tube on ice) Reviewed. sd1 13:55 EKG-ADULT Reviewed. sd1 13:56 -Blood Culture (Adults Only), peripheral from different site, or from device/port/PICC sd1 etc. if present ordered. 13:57 Urine Culture Ordered. EDMS 13:58 -Blood Culture Ordered. EDMS 13:58 Urinalysis Ordered. EDMS 14:10 -Blood Culture (Adults Only), peripheral from different site, or from device/port/PICC lbd etc. if present complete. 14:15 BLOOD CULTURES Ordered. EDMS 14:59 [facility] Payment Agreement was scanned into [employer] and attached to record. mm15 15:22 URINALYSIS Ordered. EDMO 06/19 08:47 T-Sheet-- Draft Copy was scanned into [employer] and attached to record. [facility] 08:47 ECG/EKG was scanned into [employer] and attached to record. se 11:42 Refusal of Services was scanned into [employer] and attached to record. 11:43 T-Sheet-- Draft Copy was scanned into [employer] and attached to record. gb Administered Medications: 06/18 12:47 Drug: NS 0.9% 1000 ml [sodium chloride 0.9 % injection solution] Route: IV; Rate: pml bolus; Site: left antecubital; 14:01 Follow up: IV Status: Completed infusion; IV Intake: 1000ml pml Signatures: Dispatcher [employer] EDMS Zahra Perez MD MD sd1 Maite Wang, Validation Analyst Unit lbd Laurie Tucker, Reg Reg gb Neisha Durant RN RN pml Vita Knox mm15 Zahra Arce [facility] The chart was reviewed and I authenticate all verbal orders and agree with the evaluation and treatment provided.Corrections: (The following items were deleted from the chart) 14:19 13:57 Chest, 1 view+XR ordered. EDMS EDMS Attachments: 14:59 [facility] Payment Agreement mm15 08:47 ECG/EKG [facility] 11:43 T-Sheet-- Draft Copy gb Chart Complete MTDD
--- NOTE | 2016-06-20 16:20 | EDDOCDS ---
Nurse's Notes [facility] Name: Diony Hoffman Age: 55 yrs Sex: Male : 1960 Arrival Date: 06/18/2016 Time: 12:30 Bed 1 Private MD: Jaison Jeffers M. Diagnosis: Hypotension Presentation: 06/18 12:32 Presenting complaint: Patient states: became light headed and dizzy while at store and pml felt as if he needed to sit down. denies LOC. EMS reports pt was minimally responsive to voice commands and reported some fine tremors. states pt was d/c'ed from [facility] yesterday. found pt diaphoretic and pale with bp 60/p. Adult Sepsis Screening: The patient does not have new or worsening altered mentation. Patient's respiratory rate is less than 22. Systolic blood pressure is less than or equal to 100 (1 point). Patient has a qSOFA score of 1- Negative Sepsis Screen. Suicide/Homicide risk assessment- the patient denies having any suicidal and/or homicidal ideations and does not present with any other emotional, behavioral or mental health complaints. Status: Patient is not a taxi servicer or dependent. Transition of care: patient was not received from another setting of care. 12:32 Acuity: MYAH Level 3 pml 12:32 Method Of Arrival: Ambulance pml Triage Assessment: 12:36 General: Appears in no apparent distress, comfortable, Behavior is appropriate for age, pml cooperative. Pain: Location: anterior aspect of right shoulder Pain currently is 8 out of 10 on a pain scale. HIV screening NA for this visit Offered previously. The patient is triaged at the bedside. See Assessment in Nurses Notes section of ED record. Neurological: Level of Consciousness is awake, alert, Oriented to person, place, time. Cardiovascular: Capillary refill < 3 seconds Rhythm is sinus rhythm No ectopy. Respiratory: Airway is patent Respiratory effort is even, unlabored, Respiratory pattern is regular, symmetrical. GI: Abdomen is non- distended. Derm: Skin is pale. Historical: - Allergies: no known allergies; - Home Meds: 1. benazepril 40 mg oral tab 1 tab once daily 2. naltrexone 50 mg oral tab 1 tab once daily 3. trazodone 50 mg Oral tab nightly - PMHx: Alcoholism; Anxiety; Chronic Low Back Pain; herniated lumbar discs; Hypertension; - PSHx: Vasectomy; ORIF Left Ankle; ORIF Right Ankle; Rotator Cuff Repair- Right; - Social history: Smoking status: Patient states former smoker of tobacco. No barriers to communication noted, The patient speaks fluent Divehi, Speaks appropriately for age. - Family history: Not pertinent. - : The pt / caregiver states he / she is not on anticoagulants. Home medication list is obtained from the patient. - Exposure Risk Screening:: None identified. Screenin:40 Screening information is obtained from the patient. Fall risk: No risks identified. pml Assistance ADL's: requires no assistance with activities of daily living. Abuse/DV Screen: The patient / caregiver reports he/she is: not in a situation that causes fear, pain or injury. Nutritional screening: No deficits noted. Advance Directives: Currently, there is no health care proxy. home support is adequate. Assessment: 12:40 General: see triage note. pml 14:08 General: Appears in no apparent distress, comfortable, Behavior is appropriate for age, pml cooperative. Pain: Denies pain. Neurological: Level of Consciousness is awake, alert, Oriented to person, place, time. Cardiovascular: Capillary refill < 3 seconds Rhythm is sinus rhythm No ectopy. Respiratory: Airway is patent Respiratory effort is even, unlabored. Derm: Skin is pink, warm & dry. 14:17 General: Reports Pt refused Chest X-ray. Dr. Perez made aware. jc4 15:00 General: pt reports he feels better and would like to go home. MD Naqvi reviewed AMA pml risks and benefits and pt acknowledged, AMA form signed . 15:16 General: Appears in no apparent distress, Behavior is appropriate for age, cooperative. pml Pain: Denies pain. Neurological: Level of Consciousness is awake, alert, Oriented to person, place, time. Cardiovascular: Capillary refill < 3 seconds Rhythm is sinus rhythm No ectopy. Respiratory: Airway is patent Respiratory effort is even, unlabored. Derm: Skin is pink, warm & dry. Vital Signs: 12:38 BP 87 / 55; Pulse 75; Resp 20; Temp 97.8(O); Pulse Ox 97% on R/A; Weight 94.48 kg (M); ls3 Pain 8/10; 12:42 BP 85 / 53 (auto/); pml 12:42 Pulse 71 MON; Pulse Ox 97% ; pml 12:45 BP 81 / 50 (auto/); pml 12:46 Pulse 66 MON; Pulse Ox 96% ; pml 12:51 BP 86 / 55 (auto/); pml 12:52 Pulse 63 MON; Pulse Ox 99% ; pml 13:01 BP 87 / 55 (auto/); pml 13:02 Pulse 69 MON; Pulse Ox 99% ; pml 13:11 BP 91 / 54 (auto/); pml 13:12 Pulse 66 MON; Pulse Ox 96% ; pml 13:21 BP 97 / 51 (auto/); pml 13:22 Pulse 68 MON; Pulse Ox 89% ; pml 13:30 Pulse 68 MON; Pulse Ox 97% ; pml 13:30 BP 90 / 50 (auto/); pml 13:40 Pulse 65 MON; Pulse Ox 97% ; pml 13:40 BP 90 / 55 (auto/); pml 13:51 BP 91 / 52 (auto/); pml 13:52 Pulse 62 MON; Pulse Ox 97% ; pml 14:01 BP 92 / 52 (auto/); pml 14:02 Pulse 64 MON; Pulse Ox 96% ; pml 14:11 Pulse 65 MON; Pulse Ox 97% ; pml 14:11 BP 108 / 67 (auto/); pml 14:21 BP 112 / 65 (auto/); pml 14:21 Pulse 64 MON; Pulse Ox 98% ; pml 14:29 Pulse 67 MON; Pulse Ox 93% ; pml 14:30 BP 123 / 71 (auto/); pml 14:39 Pulse 65 MON; Pulse Ox 97% ; pml 14:40 BP 111 / 73 (auto/); pml 14:51 BP 115 / 72 (auto/); pml 14:51 Pulse 68 MON; Pulse Ox 97% ; pml 15:01 BP 126 / 74 (auto/); pml 15:01 Pulse 69 MON; Pulse Ox 96% ; pml 15:08 Pulse 67 MON; Pulse Ox 94% ; pml 15:08 BP 128 / 73 (auto/); pml 15:18 BP 128 / 73; Pulse 67; Resp 18; Temp 97.3; Pulse Ox 92% on R/A; Pain 0/10; pml Vitals: 12:36 Log In Time N/A - ambulance arrival. pml ED Course: 12:31 Patient visited by Maite Wang, Mechanical Designer. lbd 12:31 Patient moved to Waiting lbd 12:32 Jaison Jeffers is Private Physician. lbd 12:32 Neisha Durant,RN is Primary Nurse. lbd 12:32 Patient moved to 1 lbd 12:33 Triage Initiated pml 12:34 Zahra Perez MD is Attending Physician. sd1 12:37 Patient visited by Zahra Perez MD. sd1 12:37 Patient visited by Neisha Durant,JACINTA. pml 12:39 Patient visited by Manasa Bender PCA. ls3 12:40 The patient / caregiver is instructed regarding the plan of care and ED course. Patient pml has correct armband on for positive identification. Placed in gown. Bed in low position. Call light in reach. Side rails up X2. Seizure precautions initiated. central office repairer supervisor on. Pulse ox on. NIBP on. 12:40 Inserted peripheral IV: 18gauge IV in left antecubital area and blood collected. pml Patient tolerated the procedure well. by JACINTA Baumann. 12:41 Patient visited by Neisha Durant RN. pml 12:55 EKG done. (by ED staff). Reviewed by Zahra Perez MD. ls3 13:43 EKG-ADULT Returned. EDMS 13:59 Patient visited by Leonor Morrow PCA. jlf 14:09 Patient visited by Neisha Durant RN. pml 14:33 Jaison Jeffers is Referral Physician. sd1 14:59 [facility] Payment Agreement was scanned into Key Ring and attached to record. mm15 15:18 Discontinued lock intact, bleeding controlled, pressure dressing applied, No pml redness/swelling at site. No procedures done that require assistance. 06/19 08:47 T-Sheet-- Draft Copy was scanned into Key Ring and attached to record. se 08:47 ECG/EKG was scanned into [employer] and attached to record. seh 11:42 Refusal of Services was scanned into [employer] and attached to record. gb 11:43 T-Sheet-- Draft Copy was scanned into Key Ring and attached to record. gb Administered Medications: 06/18 12:47 Drug: NS 0.9% 1000 ml [sodium chloride 0.9 % injection solution] Route: IV; Rate: pml bolus; Site: left antecubital; 14:01 Follow up: IV Status: Completed infusion; IV Intake: 1000ml pml Attachments: 11:42 Refusal of Services gb Intake: 06/18 14:01 IV: 1000.00ml; Total: 1000.00ml. pml Order Results: Lab Order: Amylase; SPEC'M 06/18/16 12:38 Test: AMYLASE; Value: 49; Range: 25-115; Units: U/L; Status: F Lab Order: Basic Metabolic Profile; SPEC'M 06/18/16 12:38 Test: GLUCOSE, FASTING; Value: 139; Range: 70-105; Abnormal: Above high normal; Units: MG/DL; Status: F Test: BLOOD UREA NITROGEN; Value: 15; Range: 7-18; Units: MG/DL; Status: F Test: CREATININE FOR GFR; Value: 1.66; Range: 0.70-1.30; Abnormal: Above high normal; Units: MG/DL; Status: F Test: GLOMERULAR FILTRATION RATE; Value: 45.7; Range: >56; Abnormal: Below low normal; Status: F Test: SODIUM LEVEL; Value: 138; Range: 136-145; Units: MEQ/L; Status: F Test: POTASSIUM SERUM; Value: 4.6; Range: 3.5-5.1; Units: MEQ/L; Status: F Test: CHLORIDE LEVEL; Value: 103; Range: 98-107; Units: MEQ/L; Status: F Test: CARBON DIOXIDE LEVEL; Value: 24; Range: 21-32; Units: MEQ/L; Status: F Test: ANION GAP; Value: 11; Range: 8-16; Units: MEQ/L; Status: F Test: CALCIUM LEVEL; Value: 9.1; Range: 8.5-10.1; Units: MG/DL; Status: F Test Note: ; Units are mL/min/1.73 m2 Chronic Kidney Disease Staging per NKF: Stage I & II GFR >=60 Normal to Mildly Decreased Stage III GFR 30-59 Moderately Decreased Stage IV GFR 15-29 Severely Decreased Stage V GFR <15 Very Little GFR Left ESRD GFR <15 on MANAGER MEDICARE Lab Order: CBC with Diff; SPEC'M 06/18/16 12:38 Test: WHITE BLOOD COUNT; Value: 8.3; Range: 4.0-10.0; Units: K/mm3; Status: F Test: RED BLOOD COUNT; Value: 4.32; Range: 4.30-6.10; Units: M/mm3; Status: F Test: HEMOGLOBIN; Value: 14.8; Range: 14.0-18.0; Units: g/dl; Status: F Test: HEMATOCRIT; Value: 44.1; Range: 42.0-52.0; Units: %; Status: F Test: MEAN CORPUSCULAR VOLUME; Value: 101.9; Range: 80.0-96.0; Abnormal: Above high normal; Units: fl; Status: F Test: MEAN CORPUSCULAR HEMOGLOBIN; Value: 34.2; Range: 27.0-33.0; Abnormal: Above high normal; Units: pg; Status: F Test: MEAN CORPUSCULAR HGB CONC; Value: 33.6; Range: 32.0-36.5; Units: g/dl; Status: F Test: RED CELL DISTRIBUTION WIDTH; Value: 12.2; Range: 11.5-14.5; Units: %; Status: F Test: PLATELET COUNT, AUTOMATED; Value: 459; Range: 150-450; Abnormal: Above high normal; Units: k/mm3; Status: F Test: NEUTROPHILS %; Value: 70.8; Range: 36.0-66.0; Abnormal: Above high normal; Units: %; Status: F Test: LYMPH %; Value: 19.5; Range: 24.0-44.0; Abnormal: Below low normal; Units: %; Status: F Test: MONO %; Value: 6.5; Range: 0.0-5.0; Abnormal: Above high normal; Units: %; Status: F Test: EOS %; Value: 0.4; Range: 0.0-3.0; Units: %; Status: F Test: BASO %; Value: 0.4; Range: 0.0-1.0; Units: %; Status: F Test: LARGE UNSTAINED CELL %; Value: 2.4; Range: 0.0-4.0; Units: %; Status: F Test: NEUTROPHILS #; Value: 5.9; Range: 1.8-7.7; Units: K/mm3; Status: F Test: LYMPH #; Value: 1.6; Range: 1.5-4.5; Units: K/mm3; Status: F Test: MONO #; Value: 0.5; Range: 0.0-0.8; Units: K/mm3; Status: F Test: EOS #; Value: 0.0; Range: 0.0-0.50; Units: K/mm3; Status: F Test: BASO #; Value: 0.0; Range: 0.0-0.2; Units: K/mm3; Status: F Test: LARGE UNSTAINED CELL #; Value: 0.2; Range: 0.0-0.4; Units: K/mm3; Status: F Lab Order: Cardiac Injury Profile; SPEC'M 06/18/16 12:38 Test: CPK CREATINE PHOSPHOKINASE; Value: 219; Range: 39-308; Units: U/L; Status: F Test: CK-MB VALUE MASS; Value: 1.8; Range: 0.0-3.6; Units: NG/ML; Status: F Test: MB/CK RELATIVE INDEX; Value: 0.82; Range: < OR =4; Status: F Test Note: ; DIAGNOSIS CRITERIA MMB ng/ml Relative Index (RI) NON-AMI < or = 5 N/A JOLLY ZONE > 5 < or = 4 AMI > 5 > 4 Lab Order: Lipase; [facility]' 06/18/16 12:38 Test: LIPASE; Value: 395; Range: 73-393; Abnormal: Above high normal; Units: U/L; Status: F Lab Order: Liver Profile; [facility]' 06/18/16 12:38 Test: AST/SGOT; Value: 20; Range: 15-37; Units: U/L; Status: F Test: ALT/SGPT; Value: 24; Range: 12-78; Units: U/L; Status: F Test: ALKALINE PHOSPHATASE; Value: 72; Range: 45-117; Units: U/L; Status: F Test: BILIRUBIN,TOTAL; Value: 0.4; Range: 0.2-1.0; Units: MG/DL; Status: F Test: BILIRUBIN,DIRECT; Value: 0.1; Range: 0.0-0.2; Units: MG/DL; Status: F Test: TOTAL PROTEIN; Value: 7.2; Range: 6.4-8.2; Units: GM/DL; Status: F Test: ALBUMIN; Value: 3.9; Range: 3.2-5.2; Units: GM/DL; Status: F Test: ALBUMIN/GLOBULIN RATIO; Value: 1.18; Range: 1.00-1.93; Status: F Lab Order: Prothrombin Time Profile\E\INR; SPEC'M 06/18/16 12:38 Test: PROTHROMBIN TIME; Value: 13.6; Range: 12.3-14.5; Units: SECONDS; Status: F Test: INR; Value: 1.03; Status: F Test Note: ; THERAPUTIC HUMAN INR VALUES INDICATIONS NORMAL RANGES PROPHYLAXIS/TREATMENT OF: VENOUS THROMBOSIS 2.0-3.0 PULMONARY EMBOLISM 2.0-3.0 PREVENTION OF SYSTEMIC EMBOLISM FROM: TISSUE HEART VALVES 2.0-3.0 ACUTE MYOCARDIAL INFARCTION 2.0-3.0 VALVULAR HEART DISEASE 2.0-3.0 ATRIAL FIBRILLATION 2.0-3.0 MECHANICAL VALVES(HIGH RISK) 2.5-3.5 RECURRENT MYOCARDIAL INFARCTION 2.5-3.5 Lab Order: Troponin; SPEC'M 06/18/16 12:38 Test: TROPONIN I; Value: < 0.02; Range: < 0.10; Units: NG/ML; Status: F Test Note: ; Troponin I Reference Interval for [employer] LOCI: 99th Percentile= 0.00-0.045 ng/ml Risk Stratification: <= 0.10 ng/ml Decreased Risk for Adverse Clinical Events. 0.10-1.50 ng/ml Increased Risk for Adverse Clinical Events. Evaluation of additional criterion and/or repeat testing in 2-6 hours is suggested to rule out myocardial damage. >= 1.50 ng/ml Indicative of Myocardial Injury. Lab Order: Lactic Acid (Jolly tube on ice); SPEC'M 06/18/16 12:38 Test: LACTIC ACID LEVEL, LACTATE; Value: 2.1; Range: 0.4-2.0; Abnormal: Above high normal; Units: MMOL/L; Status: F Lab Order: -Blood Culture; SPEC'M 06/18/16 12:38 Test: BLOOD CULTURE; Value: No growth after 24 hours . All specimens observed; Status: F Test: BLOOD CULTURE; Value: for 5 days. Results final at that time.; Status: F Test: BLOOD CULTURE; Value: No Growth after 48 hours. All Specimens observed; Status: F Test: BLOOD CULTURE; Value: for 7 days. Results final at that time.; Status: F Lab Order: BLOOD CULTURES; SPEC'M 06/18/16 14:06 Test: BLOOD CULTURE; Value: No growth after 24 hours . All specimens observed; Status: F Test: BLOOD CULTURE; Value: for 5 days. Results final at that time.; Status: F Test: BLOOD CULTURE; Value: No Growth after 48 hours. All Specimens observed; Status: F Test: BLOOD CULTURE; Value: for 7 days. 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 sd1 15:18 Discharge Assessment: Patient awake, alert and oriented x 3. No cognitive and/or pml functional deficits noted. Patient verbalized understanding of disposition instructions. patient administered narcotics - no. The following High Risk Discharge criteria are identified: None. Discharged to home ambulatory, The patient is leaving AMA: AMA form signed, Notification of AMA status is made to the charge nurse, the director of social services, the ED attending physician. Condition: good Condition: stable. Discharge instructions given to patient, Instructed on discharge instructions, follow up and referral plans. Demonstrated understanding of instructions, Pt was receptive of discharge instructions/ teaching. No special radiology studies were completed. Property sent home with patient. 15:19 Patient left the ED. pml Signatures: Dispatcher [employer] Zahra Daniels MD MD sd1 Maite Wang, Mechanical Designer Unit lbd Laurie Tucker, Reg Reg Jenn Chen, RN RN jc4 Neisha Durant,JACINTA RN pml Vita Knox mm15 Leonor Morrow, CITIZENSHIP INSTRUCTOR CITIZENSHIP INSTRUCTOR jlf Manasa Bender, CITIZENSHIP INSTRUCTOR CITIZENSHIP INSTRUCTOR ls3 Yazmin, Zahra costello Chart Complete MTDD
== END 2016-06-18 15:19 | disposition left against medical advice (07) ==
LOC: M ED 12:30
DX: I95.9 Hypotension, unspecified (principal); F10.20 Alcohol dependence, uncomplicated; F41.9 Anxiety disorder, unspecified; M51.26 Other intervertebral disc displacement, lumbar region; I10 Essential (primary) hypertension; Z87.891 Personal history of nicotine dependence; Z79.899 Other long term (current) drug therapy

== ENCOUNTER → 2018-11-23 | Outpatient (CLI) | payer MEDICARE, OTHER ==
[~2018-11-23] MED LIST changes: +BACITAB PO; -BACITAB3 PO; +CIPR-249 PO; -CIPR500T89 PO; +FOLI1TAB11 PO; -FOLI1TAB2 PO
--- NOTE | 2018-11-29 09:02 | SLEEPHOME ---
DATE OF PROCEDURE: 11/23/2018 ORDERED BY: Dr. Ricketts Diagnostic home sleep testing was performed due to concern for the obstructive sleep apnea syndrome. For testing a nocturnal T3 respiratory monitoring device was used. Continuous record was made of pulse, oxygen saturation, airflow, chest and abdominal strain, and body position. 9 hours and 59 minutes of data were reviewed. There were 6 hours and 41 minutes marked as time in bed. During the interval marked time in bed, there were 203 respiratory events identified of 10 seconds in duration or greater for respiratory event index of 30.4. The events were primarily obstructive. Baseline pulse rate 54 beats per minute. Pulse rate ranged 46-79. Baseline saturation 93%, saturations fell to 80%, and the oxygen desaturation index was 20.2. Testing was performed in both the supine and nonsupine positions. IMPRESSION: Abnormal home sleep testing with repetitive respiratory events and oxygen desaturations to 80% with a respiratory event index of 30.4 is consistent with the obstructive sleep apnea syndrome. RECOMMENDATIONS: The patient should be encouraged to undergo formal sleep evaluation.
== END ==
LOC: M SLEEP HO 09:53
PROVIDERS: ATTEND Family Medicine
DX: G47.30 Sleep apnea, unspecified (principal)

== ENCOUNTER 2019-01-10 08:48 | Day surgery (SDC) | payer MEDICARE, OTHER ==
[~2019-01-10] VITALS: Ht 177.8 cm; Wt 84.3 kg
[~2019-01-10 08:48] MED LIST changes: +NS 1,000 ML IV ONE; +TRAM50TA2 PO
[2019-01-10] MEDS ORDERED: PROPOFOL 200 MG/20 ML VIAL As Ordered ONE ×2 (09:11→10:12)
[2019-01-10] MEDS ORDERED: LIDOCAINE 2% INJ 100 MG/5 ML SDV (FOR ANES.) As Ordered ONE (09:12)
--- NOTE | 2019-01-10 10:28 | ROOR ---
Patient Name: Jorge Hoffman Procedure Date: 01/10/2019 10:05 AM Date of : 1960 Age: 58 Room: [facility] Gender: Male Note Status: Finalized Procedure: Total Colonoscopy to cecum + Bx. Indications: High risk colon cancer surveillance: Personal history of colonic polyps, Last colonoscopy: 2014 Providers: Dewayne Mcdonald MD Referring MD: Jaison MOREIRA MD Requesting Provider: Medicines: Monitored Anesthesia Care Complications: No immediate complications. Procedure: Pre-Anesthesia Assessment: - The heart rate, respiratory rate, oxygen saturations, blood pressure, adequacy of pulmonary ventilation, and response to care were monitored throughout the procedure. The Colonoscope was introduced through the anus and advanced to the cecum, identified by appendiceal orifice and ileocecal valve. The colonoscopy was performed without difficulty. The patient tolerated the procedure well. The quality of the bowel preparation was excellent. Findings: The perianal and digital rectal examinations were normal. Non-bleeding internal hemorrhoids were found during retroflexion. The hemorrhoids were small and Grade I (internal hemorrhoids that do not prolapse). Non-bleeding internal hemorrhoids were found during retroflexion. The hemorrhoids were small and Grade I (internal hemorrhoids that do not prolapse). Multiple small and large-mouthed diverticula were found in the recto-sigmoid colon, sigmoid colon and descending colon. A localized area of moderately altered vascular, erythematous and petechial mucosa was found in the rectum. Biopsies were taken with a cold forceps for histology. The exam was otherwise without abnormality. Impression: - Non-bleeding internal hemorrhoids. - Non-bleeding internal hemorrhoids. - Diverticulosis in the recto-sigmoid colon, in the sigmoid colon and in the descending colon. - Altered vascular, erythematous and petechial mucosa in the rectum. Biopsied. - The examination was otherwise normal. - The exam was otherwise normal to the cecum. Recommendation: - Patient has a contact number available for emergencies. The signs and symptoms of potential delayed complications were discussed with the patient. Return to normal activities tomorrow. Written discharge instructions were provided to the patient. - High fiber diet. - Discharge patient to home. - Continue present medications. - Await pathology results. - Telephone GI clinic for pathology results in 1 week. - Repeat colonoscopy in 5 years for surveillance. - Return to referring physician. - The findings and recommendations were discussed with the patient's family. Dewayne Mcdonald MD Dewayne Mcdonald MD 01/10/2019 10:28:05 AM Electronically signed by Dewayne Mcdonald MD Number of Addenda: 0 Note Initiated On: 01/10/2019 10:05 AM Estimated Blood Loss: Estimated blood loss: none.
[2019-01-10 10:40] VITALS: BP 148/85
== END 2019-01-10 10:51 | disposition home or self-care (01) ==
LOC: M OPP 08:48
PROVIDERS: ATTEND Internal Medicine Gastroenterology
DX: Z12.11 Encounter for screening for malignant neoplasm of colon (principal); Z86.010 Personal history of colon polyps; K64.0 First degree hemorrhoids; K57.30 Diverticulosis of large intestine without perforation or abscess without bleeding; K62.89 Other specified diseases of anus and rectum; M54.89 Other dorsalgia; M19.90 Unspecified osteoarthritis, unspecified site; Z86.69 Personal history of other diseases of the nervous system and sense organs; G47.30 Sleep apnea, unspecified; R06.83 Snoring; Z79.899 Other long term (current) drug therapy

== ENCOUNTER 2021-05-16 16:22 | Emergency (ER) | payer MEDICARE, OTHER ==
[~2021-05-16] VITALS: Ht 177.8 cm; Wt 86.4 kg
[~2021-05-16 16:22] MED LIST changes: -NS 1,000 ML IV ONE
[2021-05-16] MEDS ORDERED: ZOLO50TA PO (16:30)
[2021-05-16] MEDS ORDERED: TRAZ1TAB12 PO (16:30)
[2021-05-16] MEDS ORDERED: OXAZEPAM 15 MG CAP PO ONE ×2 (19:55→23:35)
[2021-05-16] MEDS ORDERED: ASPIRIN 81 MG CHEW TABLET PO ONE (19:55)
[2021-05-16 20:43] LABS: BASO % 0.2 % (0.0-1.0); EOS % 0.2 % (0.0-3.0); HEMOGLOBIN 14.6 g/dl (13.5-17.5); LYMPH # 1.3 10^3/uL (1.5-5.0); LYMPH % 13.6 % (24.0-44.0); MEAN CORPUSCULAR HEMOGLOBIN 33.2 pg (27.0-33.0); MEAN CORPUSCULAR VOLUME 97.7 fl (80.0-96.0); MONO % 10.4 % (2.0-8.0); NEUTROPHILS # 7.2 10^3/uL (1.5-8.5); NEUTROPHILS % 75.4 % (36.0-66.0); PLATELET COUNT, AUTOMATED 280 10^3/uL (150-450); WHITE BLOOD COUNT 9.6 10^3/uL (4.0-10.0)
[2021-05-16 21:07] LABS: ALBUMIN 4.2 GM/DL (3.2-5.2); ALT/SGPT 42 U/L (12-78); BILIRUBIN,DIRECT 0.2 MG/DL (0.0-0.2); BILIRUBIN,TOTAL 0.6 MG/DL (0.2-1.0); CK-MB VALUE MASS 2.5 NG/ML (<3.6); ETHYL ALCOHOL (ETHANOL) < 0.003 % (0.000-0.010); LIPASE 187 U/L (73-393); MB/CK RELATIVE INDEX 1.09 (< OR =4); TOTAL PROTEIN 7.7 GM/DL (6.4-8.2)
[2021-05-16] MEDS ORDERED: NS 1,000 ML IV ONE ×2 (21:45)
[2021-05-16 22:11] LABS: AMPHETAMINES LEVEL URINE NEGATIVE (NEGATIVE); BARBITURATES URINE NEGATIVE (NEGATIVE); BENZODIAZEPINES URINE NEGATIVE (NEGATIVE); CANNABINOIDS URINE POSITIVE (NEGATIVE); COCAINE METABOLITE URINE NEGATIVE (NEGATIVE); METHADONE URINE NEGATIVE (NEGATIVE); OPIATES URINE NEGATIVE (NEGATIVE); PHENCYCLIDINE URINE NEGATIVE (NEGATIVE)
[2021-05-16] MEDS ORDERED: ISOVUE-370 76% 100ML VIAL As Ordered ONE (22:19)
[2021-05-16 22:21] LABS: RSV AMPLIFICATION NEGATIVE (NEGATIVE)
[2021-05-16 23:45] VITALS: BP 166/97
[2021-05-17] MEDS ORDERED: OMEP40CA4 PO (00:04)
[2021-05-17] MEDS ORDERED: OXAZ10CA3 PO (00:04)
== END 2021-05-17 00:29 | disposition home or self-care (01) ==
LOC: M ED 16:22
DX: K21.9 Gastro-esophageal reflux disease without esophagitis (principal); R07.89 Other chest pain; F10.130 Alcohol abuse with withdrawal, uncomplicated; I45.10 Unspecified right bundle-branch block; F32.9 Major depressive disorder, single episode, unspecified; F41.9 Anxiety disorder, unspecified
CPT/HCPCS: 71045; 71275; 80047; 80076; 80307; 82077; 82550; 82553; 83690; 84484; 85025; 85379; 87631; 93005; 96360; 96361; 99285; Q9967